=== PATIENT | male | born 1980 | race Caucasian/White ===

== ENCOUNTER 2023-06-11 14:41 | Emergency (ER) | payer OTHER, SELFPAY ==
[2023-06-11 14:42] VITALS: BP 167/117; PULSE 105; RESP 18; TEMP 36.7; O2SAT 98; BMI 36.1
--- NOTE | 2023-06-11 14:48 | CT_ITS ---
WS: [id number] CT HEAD TECHNIQUE: Noncontrast CT of the head obtained from the skullbase to the vertex. CLINICAL INFORMATION: trauma/fall COMPARISON: None. DLP: 1924.[address] scans at [facility] [place] use at least one of these dose optimization techniques: automated e xposure control; mA and/or kV adjustment per patient size (includes targeted exams where dose is matc hed to clinical indication); or iterative reconstruction. FINDINGS: Mixed attenuation extra-axial lenticular shaped hematoma overlying the LEFT posterior parietal and kaur perior temporal lobes. Small amount of extra-axial blood products track along the LEFT middle cranial fossa. Small amount of subarachnoid hemorrhage in the LEFT posterior frontal and parietal lobes. Ass ociated underlying nondisplaced skull fracture involving the LEFT parietal calvarium. Additional slig htly comminuted skull fracture squamous portion of the LEFT temporal bone and a small amount of extra -axial blood products in this area. Mastoid air cells are well aerated. LEFT parietal hematoma result s in mild mass effect on the underlying brain parenchyma. No midline shift. No hydrocephalus. Normal posterior fossa. Basilar cisterns are patent. Hematoma measures approximately 12.7 mm in short axis dimension. Paranasal sinuses are well aerated. Normal posterior nasopharynx. IMPRESSION: 1. Mixed attenuation acute extra-axial hematoma overlying the LEFT parietal lobe and extending along the LEFT middle cranial fossa. This measures 12.7 mm in maximal transverse dimension with configurat ion suspicious for epidural hematoma. Low-attenuation blood products suspicious for unclotted blood o r ongoing hemorrhage 2. Associated nondisplaced LEFT parietal skull fracture extending to the LEFT middle cranial fossa w ith a minimally depressed and slightly comminuted LEFT temporal skull fracture anterior to the mastoi d. 3. Extra-axial blood products track along the LEFT middle cranial fossa. In addition, small amount o f subarachnoid hemorrhage in the LEFT frontal parietal and temporal lobes. 4. Mild associated mass effect in the LEFT parietal lobe. No midline shift or hydrocephalus. Notified GERMAINE Farooq at 06/11/2023 3:38 PM.
--- NOTE | 2023-06-11 14:48 | CT_ITS ---
WS: [id number] CT CERVICAL TRAUMA TECHNIQUE: Noncontrast CT of the cervical spine with coronal and sagittal reformatted images. CLINICAL INFORMATION: fall/trauma COMPARISON: None. DLP: 1924.[address] scans at [facility] use at least one of these dose optimization techniques: automated e xposure control; mA and/or kV adjustment per patient size (includes targeted exams where dose is matc hed to clinical indication); or iterative reconstruction. FINDINGS: Mild cervical curve. Straightening of the normal cervical lordosis. Normal craniocervical junction. N ormal C1-C2 articulation. Dens is normal in appearance. Normal occipital condyles. No high-grade spin al canal narrowing. Normal C1 ring. No evidence of acute fracture or dislocation. Normal prevertebral soft tissues. Mastoids air cells are well aerated. IMPRESSION: No evidence of acute fracture or dislocation.
--- NOTE | 2023-06-11 14:50 | W.ED.FALL ---
Documented by User: GERMAINE Farooq 06/11/23 16:32 HPI - Fall General: Chief Complaint: Fall Stated Complaint: FALL Time Seen by Provider: 06/11/23 14:42 Source: patient and EMS Mode of arrival: EMS Limitations: no limitations History of Present Illness: Patient is a nice 43-year-old male who presents to ED today for evaluation following a head injury following a slip and fall. Question whether this is Worker's Comp. or not. 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 Patient states he was at work going to his truck when he accidentally slipped and fell on ice and struck the back of his head. Not sure if he lost consciousness or not but states he does have trouble remembering the incident and states he felt woozy afterwards. He is currently complaining of a headache. No neck or back pain. He denies any other injury sustained during the fall. MD complaint: fall Onset (ago): hour(s) Fall from: standing Fall witnessed: no Place fall occurred: work Loss of consciousness: Unsure Prolonged down time: no Symptoms prior to fall: none Context: tripped/slipped (on ice) Location of injury: head Associated symptoms-after fall: Reports headache(s); Denies chest pain, difficulty walking, lightheadedness or neck pain Review of Systems Const: Denies: fever(s), chills, body aches, fatigue or malaise Eyes: Denies: change in vision, blurry vision, photophobia, floaters or seeing flashes Card: Denies: chest pain, palpitations, lightheadedness, syncope or pre-syncope Resp: Denies: dyspnea GI: Denies: nausea or vomiting Musc: Denies: neck pain, back pain, extremity pain or joint pain Neuro: Reports: headache(s); Denies: numbness in extremities, weakness in extremities, sensory changes or difficulty walking Physical Exam Const: COMMON NORMALS: no acute distress, patient oriented x3, no limitations, healthy appearing, alert and well nourished GENERAL APPEARANCE: cooperative NUTRITIONAL APPEARANCE: overweight ORIENTATION/CONSCIOUSNESS: Yes awake, Yes oriented to person, Yes oriented to place and Yes oriented to time HENMT: COMMON NORMALS: normocephalic HEAD & SCALP: normal to inspection, normocephalic and other (mild contusion/hematoma posterior scalp); no laceration FACE & SINUS: normal facial exam Eye: GENERAL EYE: appearance normal, both eyes and all related structures Neck/C-Spine: COMMON NORMALS: full ROM and no lymphadenopathy GENERAL: Yes normal visual inspection Chest: COMMONS NORMALS: normal inspection of the chest and normal palpation of entire chest wall Resp: COMMON NORMALS: normal respiratory effort and clear to auscultation bilaterally AUSCULTATION: clear to auscultation bilaterally Cardio: COMMON NORMALS: regular rate and regular rhythm RATE: regular rate RHYTHM: regular rhythm Back/Pelvis: COMMON NORMALS: thoracic and lumbar spine normal to inspection Extremity: COMMON NORMALS: normal to inspection GENERAL: Yes normal exam except as noted Neuro: ADRIAN COMA SCALE: document GCS findings Traer coma scale eye opening: Spontaneous Adrian coma scale verbal response: Orientated Adrian coma scale motor response: Obey commands Adrian coma scale total score: 15 COMMON NORMALS: patient oriented x3, CN's II-XII intact bilaterally, moves all extremities, no focal motor deficits, no sensory deficits noted and gait normal SENSORIUM/ORIENTATION: Yes alert, Yes oriented to person, Yes oriented to place and Yes oriented to time Skin: TRAUMA: abrasion (mild-posterior scalp) and no lacerations Course Consultations: Consultation #1: Dr. Del Toro-Bobby ED physician-accepts trauma transfer Vital Signs: Vital signs: Vital Signs Temperature 98.1 F 06/11/23 14:42 Pulse Rate 89 06/11/23 16:20 Respiratory Rate 18 06/11/23 14:42 Blood Pressure 137/96 06/11/23 16:20 Pulse Oximetry 97 06/11/23 16:20 Oxygen Delivery Me thod Room Air 06/11/23 16:20 MDM - Fall Medical Decision Making Patient here following a slip and fall accident that occurred while at work. He arrived to the ED alert and oriented with a GCS of 15 but did complain of a headache. CT imaging of his head and cervical spine obtained. CT head showing mixed attenuation hematoma suspicious for epidural bleeding. He has an associated left parietal skull fracture as well as a left temporal skull fracture. Mild associated mass effect but no shift at this time. Dr. Garcia was immediately consulted following CT report and has also evaluated patient and will staff patient along with myself. Patient will be emergently ground transferred to [facility] ED. Attempted to fly but [employer] declined because of weather. All radiology interpretation(s) finalized by discharge ED provider radiology interpretation(s): IMPRESSION: 1. Mixed attenuation acute extra-axial hematoma overlying the LEFT parietal lobe and extending along the LEFT middle cranial fossa. This measures 12.7 mm in maximal transverse dimension with configuration suspicious for epidural hematoma. Low-attenuation blood products suspicious for unclotted blood or ongoing hemorrhage 2. Associated nondisplaced LEFT parietal skull fracture extending to the LEFT middle cranial fossa with a minimally depressed and slightly comminuted LEFT temporal skull fracture anterior to the mastoid. 3. Extra-axial blood products track along the LEFT middle cranial fossa. In addition, small amount of subarachnoid hemorrhage in the LEFT frontal parietal and temporal lobes. 4. Mild associated mass effect in the LEFT parietal lobe. No midline shift or hydrocephalus. Notified GERMAINE Farooq at 06/11/2023 3:38 PM. Discharge Plan Discharge Patient Disposition: Transfer to ED Clinical Impression: Epidural hemorrhage Qualifiers: Encounter type: initial encounter Loss of consciousness presence/duration: with LOC of 30 min or less Qualified Code(s): S06.4X1A - Epidural hemorrhage with loss of consciousness of 30 minutes or less, initial encounter Fracture of parietal bone of skull Qualifiers: Encounter type: initial encounter Fracture type: closed Qualified Code(s): S02.0XXA - Fracture of vault of skull, initial encounter for closed fracture Temporal skull fracture Qualifiers: Encounter type: initial encounter Fracture type: closed Qualified Code(s): S02.19XA - Other fracture of base of skull, initial encounter for closed fracture Fall from slipping on ice Qualifiers: Encounter type: initial encounter Qualified Code(s): W00.9XXA - Unspecified fall due to ice and snow, initial encounter Condition: Stable Prescriptions: No Action escitalopram oxalate 5 mg tablet 5 mg PO DAILY metoprolol tartrate 25 mg tablet 25 mg PO BID Referrals: Magdaleno,DANUTA Bailey [Primary Care Provider] - Coding Level of Care Code ED Patient Care Technician Instructor for Chg Fwd Documented by User: Jaylon Garcia MD 06/11/23 17:44 HPI - Fall General: Chief Complaint: Fall Stated Complaint: FALL Time Seen by Provider: 06/11/23 14:42 Physical Exam Neuro: ADRIAN COMA SCALE: document GCS findings Traer coma scale total score: 15 Course Vital Signs: Vital signs: Vital Signs Temperature 98.1 F 06/11/23 14:42 Pulse Rate 89 06/11/23 16:20 Respiratory Rate 18 06/11/23 14:42 Blood Pressure 137/96 06/11/23 16:20 Pulse Oximetry 97 06/11/23 16:20 Oxygen Delivery Me thod Room Air 06/11/23 16:20 MDM - Fall Medical Decision Making Patient here following a slip and fall accident that occurred while at work. He arrived to the ED alert and oriented with a GCS of 15 but did complain of a headache. CT imaging of his head and cervical spine obtained. CT head showing mixed attenuation hematoma suspicious for epidural bleeding. He has an associated left parietal skull fracture as well as a left temporal skull fracture. Mild associated mass effect but no shift at this time. Dr. Garcia was immediately consulted following CT report and has also evaluated patient and will staff patient along with myself. Patient will be emergently ground transferred to [facility] ED. Attempted to fly but [employer] declined because of weather. I saw patient with above midlevel and agree with history physical and plan patient's been stable while here. Critical Care Time Critical Care Time: Critical Care Time: Yes Total Critical Care Time: 45 Attestation: The high probability of a clinically significant, sudden or life threatening deterioration of the patient's neuro system(s) required my full and direct attention, intervention and personal management. The critical care time is as shown. This time is in addition to time spent performing any reported procedures but includes the following: [x] Data and vital sign review and interpretation [x] Patient assessment, examination and intervention [x] Documentation [x] Medication orders and management Discharge Plan Discharge Patient Disposition: Transfer to ED Clinical Impression: Epidural hemorrhage Qualifiers: Encounter type: initial encounter Loss of consciousness presence/duration: with LOC of 30 min or less Qualified Code(s): S06.4X1A - Epidural hemorrhage with loss of consciousness of 30 minutes or less, initial encounter Fracture of parietal bone of skull Qualifiers: Encounter type: initial encounter Fracture type: closed Qualified Code(s): S02.0XXA - Fracture of vault of skull, initial encounter for closed fracture Temporal skull fracture Qualifiers: Encounter type: initial encounter Fracture type: closed Qualified Code(s): S02.19XA - Other fracture of base of skull, initial encounter for closed fracture Fall from slipping on ice Qualifiers: Encounter type: initial encounter Qualified Code(s): W00.9XXA - Unspecified fall due to ice and snow, initial encounter Condition: Stable Prescriptions: No Action escitalopram oxalate 5 mg tablet 5 mg PO DAILY metoprolol tartrate 25 mg tablet 25 mg PO BID Referrals: Dolan,MARYBEL BaileyP [Primary Care Provider] - Coding Level of Care Code ED Patient Care Technician Instructor for David Hernandez
[2023-06-11] MEDS: labetalol 5 mg/mL SDV 20mL 10 MG IVP (15:34)
[2023-06-11 15:42] VITALS: BP 147/92; PULSE 89; O2SAT 97
[2023-06-11] MEDS: dexamethasone 10 mg/mL INJ IVP (16:10)
[2023-06-11] MEDS: tranexamic acid 1,000 MG/100 ML PREMIX 600 MG IV (16:12)
[2023-06-11 16:20] VITALS: BP 137/96; PULSE 89; O2SAT 97
== END 2023-06-11 16:25 ==
PROVIDERS: Emergency Provider Physician Assistant; PCP Nurse Practitioner Family
DX: S06.4X1A Epidural hemorrhage with loss of consciousness of 30 minutes or less, initial encounter (principal); S02.0XXA Fracture of vault of skull, initial encounter for closed fracture; S02.19XA Other fracture of base of skull, initial encounter for closed fracture; W00.0XXA Fall on same level due to ice and snow, initial encounter
CPT/HCPCS: 70450; 72125; 96374; 96375; 99285; J1100; J3490